=== PATIENT | female | born 1975 | race African-American/Black ===

== ENCOUNTER 2019-07-27 12:55 | Emergency (ER) | payer MEDICAID ==
[~2019-07-27] VITALS: Ht 162.6 cm; Wt 100.9 kg
[2019-07-27 13:25] VITALS: Ht 162.6 cm; Wt 100.9 kg
[2019-07-27] MEDS ORDERED: ELIQUIS5 MG PO (13:26)
[2019-07-27] MEDS ORDERED: METOPROLOL TART25 MG PO (13:27)
[2019-07-27] MEDS ORDERED: PRAVACHOL20 MG PO (13:27)
[2019-07-27] MEDS ORDERED: XANAX1 MG PO (13:27)
[2019-07-27] MEDS ORDERED: ALBUTEROL1.25 MG/3 INH (13:28)
[2019-07-27] MEDS ORDERED: PROAIR HFA8.5 G1 INH (13:29)
[2019-07-27] MEDS ORDERED: BREO ELLIPTA 11 EACH INH (13:29)
[2019-07-27] MEDS ORDERED: MELATONIN5 MG PO (13:30)
[2019-07-27 15:10] VITALS: BP 142/88
== END 2019-07-27 15:13 | disposition home or self-care (01) ==
LOC: D.ER 12:55
DX: M79.10 Myalgia, unspecified site (principal); I10 Essential (primary) hypertension; Z72.0 Tobacco use; M54.2 Cervicalgia; M25.512 Pain in left shoulder; W22.8XXA Striking against or struck by other objects, initial encounter

== ENCOUNTER 2019-11-24 19:32 | Emergency (ER) | payer MEDICAID ==
[~2019-11-24] VITALS: Ht 162.6 cm; Wt 96.2 kg
[~2019-11-24 19:32] MED LIST: ALBUTEROL1.25 MG/3 INH; BREO ELLIPTA 11 EACH INH; ELIQUIS5 MG PO; MELATONIN5 MG PO; METOPROLOL TART25 MG PO; PRAVACHOL20 MG PO; PROAIR HFA8.5 G1 INH; XANAX1 MG PO
[2019-11-24 20:20] VITALS: Ht 162.6 cm; Wt 96.2 kg
[2019-11-24 21:04] LABS: BASOPHILS 0.2 % (0-2); HEMATOCRIT 31.3 % (36.0-48.0); HEMOGLOBIN 10.1 g/dL (12-16); IMMATURE GRANULOCYTES 0.2 % (0-5); LYMPHOCYTES 27.3 % (15-50); MCH 28.5 pg (26.0-34.0); MCHC 32.3 g/dL (31.0-37.0); MCV 88.2 fL (80.0-100.0); MEAN PLATELET VOLUME 9.7 fL (7.4-10.4); MONOCYTES 7.6 % (2-11); NEUTROPHILS 63.7 % (40-80); PLATELET COUNT 310 10x3/uL (130-400); RBC 3.55 10x6/uL (4.00-5.40)
[2019-11-24 21:09] LABS: CALC OSMOLALITY 273 mosm/kg (275-300); CALCIUM 8.9 mg/dL (8.5-10.1); CARBON DIOXIDE 28.7 mmol/L (21.0-32.0); CHLORIDE - SERUM 103 mmol/L (98-107); GLUCOSE 89 mg/dL (74-106); POTASSIUM - SERUM 3.6 mmol/L (3.5-5.1); SODIUM 139 mmol/L (136-145); UREA NITROGEN 5 mg/dL (7-18); eGFR NON AFRICAN AMERICAN 64 mL/min (90-120)
[2019-11-24 21:12] LABS: APTT 22.5 SECONDS (22.8-39.4); INR 1.16 (0.85-1.17); PROTIME 14.7 SECONDS (11.6-15.0)
[2019-11-24 21:14] LABS: D-DIMER-QUANTITATIVE 0.27 ug/mLFEU (0.20-0.54)
[2019-11-24 21:26] LABS: ALBUMIN 3.2 g/dL (3.4-5.0); ALKALINE PHOSPHATASE 168 U/L (30-120); ALT (SGPT) 17 U/L (10-68); BILIRUBIN - TOTAL 0.19 mg/dL (0.2-1.3); CKMB 0.4 U/L (0.0-3.6); CREATINE KINASE 93 UL (21-215); PRO BNP 76 pg/mL (0-125); PROTEIN - SERUM 7.8 g/dL (6.4-8.2); TROPONIN-I < 0.017 ng/mL (0.000-0.060)
[2019-11-24] MEDS ORDERED: PREDNISONE10 MG PO (22:38)
[2019-11-25 00:59] VITALS: BP 145/92
== END 2019-11-25 00:06 | disposition home or self-care (01) ==
LOC: D.ER 19:32
PROVIDERS: Family Medicine
DX: D86.9 Sarcoidosis, unspecified (principal); I10 Essential (primary) hypertension; M54.9 Dorsalgia, unspecified

== ENCOUNTER 2019-11-27 12:38 | Inpatient (IN) | payer MEDICAID ==
[~2019-11-27] VITALS: Ht 162.6 cm; Wt 94.2 kg
[~2019-11-27 12:38] MED LIST changes: +PREDNISONE10 MG PO
[2019-11-27 13:31] LABS: BASOPHILS 0.2 % (0-2); EOSINOPHILS 1.7 % (0-7); HEMATOCRIT 32.5 % (36.0-48.0); HEMOGLOBIN 10.4 g/dL (12-16); MCH 28.3 pg (26.0-34.0); MCV 88.3 fL (80.0-100.0); MEAN PLATELET VOLUME 9.6 fL (7.4-10.4); MONOCYTES 7.7 % (2-11); NEUTROPHILS 57.4 % (40-80); PLATELET COUNT 303 10x3/uL (130-400); RBC 3.68 10x6/uL (4.00-5.40); RDW 15.9 % (11.5-14.5); WBC 5.2 10x3/uL (4.8-10.8)
[2019-11-27 13:38] LABS: CALC OSMOLALITY 269 mosm/kg (275-300); CALCIUM 8.9 mg/dL (8.5-10.1); CARBON DIOXIDE 27.6 mmol/L (21.0-32.0); CHLORIDE - SERUM 104 mmol/L (98-107); CREATININE - SERUM 0.9 mg/dL (0.6-1.3); GLUCOSE 89 mg/dL (74-106); POTASSIUM - SERUM 3.6 mmol/L (3.5-5.1); SODIUM 137 mmol/L (136-145); UREA NITROGEN 5 mg/dL (7-18); eGFR NON AFRICAN AMERICAN 72 mL/min (90-120)
[2019-11-27 13:40] LABS: APTT 30.9 SECONDS (22.8-39.4); INR 0.97 (0.85-1.17); PROTIME 12.9 SECONDS (11.6-15.0)
[2019-11-27 14:02] LABS: ALBUMIN 3.1 g/dL (3.4-5.0); ALKALINE PHOSPHATASE 158 U/L (30-120); ALT (SGPT) 13 U/L (10-68); BILIRUBIN - TOTAL 0.08 mg/dL (0.2-1.3); CKMB 0.4 U/L (0.0-3.6); CREATINE KINASE 72 UL (21-215); PRO BNP 145 pg/mL (0-125); PROTEIN - SERUM 7.9 g/dL (6.4-8.2); TROPONIN-I < 0.017 ng/mL (0.000-0.060)
[2019-11-27 16:00] VITALS: BP 130/85
[2019-11-27 17:00] VITALS: BP 142/73
[2019-11-27 18:00] VITALS: BP 136/85
[2019-11-27 19:00] VITALS: BP 149/85
[2019-11-27 22:48] LABS: TROPONIN-I < 0.017 ng/mL (0.000-0.060)
[2019-11-27 23:59] VITALS: BP 135/74
--- NOTE | 2019-11-28 00:49 | NUR ---
recieved pt to room per stretcher.pt is alert and oriented. pt c/o pain to breast and rib area.rates pain as a 6 on pain scale.pt has sob with miniminal exertion.pt has had some nausea and vomiting.pt has INT to left ac with some tenderness.pt has a sling to right arm.no distress noted.will continue to monitor. call johnson with in reach.siderails up x2.
[2019-11-28 03:19] VITALS: BP 116/68
--- NOTE | 2019-11-28 04:00 | NUR ---
PT LAYING IN BED ALERT.PT CONTINUES TO C/O PAIN TO BREAST AREA.PT STATES PAIN WORSENS WITH COUGHING.CALLBELL IN REACH.SIDERAILS UP X2.
[2019-11-28 05:15] LABS: BASOPHILS 0 % (0-2); EOSINOPHILS 0 % (0-7); HEMATOCRIT 32.6 % (36.0-48.0); HEMOGLOBIN 10.3 g/dL (12-16); IMMATURE GRANULOCYTES 0.2 % (0-5); LYMPHOCYTES 12.1 % (15-50); MCH 27.9 pg (26.0-34.0); MCHC 31.6 g/dL (31.0-37.0); MCV 88.3 fL (80.0-100.0); MEAN PLATELET VOLUME 10.2 fL (7.4-10.4); MONOCYTES 4.1 % (2-11); NEUTROPHILS 83.6 % (40-80); RBC 3.69 10x6/uL (4.00-5.40); RDW 16.1 % (11.5-14.5)
[2019-11-28 05:21] LABS: PLATELET COUNT 390 10x3/uL (130-400); WBC 9.2 10x3/uL (4.8-10.8)
[2019-11-28 05:42] LABS: ALBUMIN 2.9 g/dL (3.4-5.0); ALKALINE PHOSPHATASE 152 U/L (30-120); ALT (SGPT) 16 U/L (10-68); BILIRUBIN - TOTAL 0.17 mg/dL (0.2-1.3); CALCIUM 8.6 mg/dL (8.5-10.1); CARBON DIOXIDE 25.3 mmol/L (21.0-32.0); CHLORIDE - SERUM 102 mmol/L (98-107); MAGNESIUM - SERUM 1.9 mg/dL (1.8-2.4); PROTEIN - SERUM 7.7 g/dL (6.4-8.2); SODIUM 134 mmol/L (136-145); eGFR NON AFRICAN AMERICAN 64 mL/min (90-120)
[2019-11-28 05:43] LABS: CALC OSMOLALITY 268 mosm/kg (275-300); GLUCOSE 157 mg/dL (74-106); TROPONIN-I < 0.017 ng/mL (0.000-0.060); UREA NITROGEN 8 mg/dL (7-18)
[2019-11-28 06:59] VITALS: BP 98/70
[2019-11-28 07:00] VITALS: BP 118/63
[2019-11-28 10:30] VITALS: BP 119/62
--- NOTE | 2019-11-28 10:37 | NUR ---
CONTACTED JENNIFER CALDERON SAFETY CONSULTANT AND LEFT MESSAGE THAT THE MORPHINE IS NOT HELPING THIS PT'S PAIN, TO PLEASE CALL BACK.
--- NOTE | 2019-11-28 10:42 | NUR ---
0802-LYING IN BED AWAKE, ALERT, ORIENTED, C/O PAIN TO LEFT BREAST THAT GOES INTO BACK LEFT LUNG RATED 10 ON SCALE--MORPHINE AND PHENERGAN ADMINISTERED/ORDER. ALL OTHER AM MEDS ADMINISTERED/ORDER. WILL MONITOR. 1044--JENNIFER AT [facility]--VERBALLY EXPLAINED THAT MORPHINE NOT HELPING PT'S PAIN--JENNIFER STATES THE PT WILL MOST LIKELY BE GOING HOME TODAY.
[2019-11-28 12:09] VITALS: Ht 162.6 cm; Wt 94.2 kg
[2019-11-28 15:00] VITALS: BP 119/75
[2019-11-28 20:00] VITALS: BP 102/54
--- NOTE | 2019-11-28 20:00 | NUR ---
pt laying in bed crying pt states she has hurt all day. that morphine is not helping the pain.pt want more pain med.instruct pt that pain med will be given soon.pt with a good appetite.resp are even et unlabored.heartrate is regular.will continue to monitor. callbell within reach.siderails up x2.
--- NOTE | 2019-11-28 20:15 | NUR ---
PT GIVEN PM MEDS.PT GIVEN MORPHINE REQUESTED.PT RATES PAIN A 10 ON PAIN SCALE.WILL CONTINUE TO MONITOR.
[2019-11-29] VITALS: BP 95/55
--- NOTE | 2019-11-29 01:06 | NUR ---
PT REQUEST PAIN MED.PT GIVEN MORPHINE 4 MG IVP.WILL CONTINUE TO MONITOR.
--- NOTE | 2019-11-29 02:39 | NUR ---
PT REQUESTED PAIN MED AND PHENEGRAN. INSTRUCT PT THAT PAIN MED NOT DUE AT THIS TIME.PT GIVEN PHENEGRAN IM.WILL CONTINUE TO MONITOR.
[2019-11-29 04:00] VITALS: BP 99/63
[2019-11-29 06:04] LABS: BASOPHILS 0.1 % (0-2); EOSINOPHILS 0.2 % (0-7); HEMATOCRIT 29.9 % (36.0-48.0); HEMOGLOBIN 9.4 g/dL (12-16); IMMATURE GRANULOCYTES 0.2 % (0-5); LYMPHOCYTES 21.6 % (15-50); MCH 28.1 pg (26.0-34.0); MCHC 31.4 g/dL (31.0-37.0); MCV 89.5 fL (80.0-100.0); MEAN PLATELET VOLUME 10.1 fL (7.4-10.4); MONOCYTES 9.8 % (2-11); NEUTROPHILS 68.1 % (40-80); PLATELET COUNT 369 10x3/uL (130-400); RBC 3.34 10x6/uL (4.00-5.40); RDW 16.5 % (11.5-14.5)
[2019-11-29 06:05] LABS: WBC 12.1 10x3/uL (4.8-10.8)
[2019-11-29 06:40] LABS: ALBUMIN 2.9 g/dL (3.4-5.0); ANION GAP 11.3 mmol/L (8-16); CALCIUM 8.3 mg/dL (8.5-10.1); CARBON DIOXIDE 27.5 mmol/L (21.0-32.0); CREATININE - SERUM 1.1 mg/dL (0.6-1.3); MAGNESIUM - SERUM 2.1 mg/dL (1.8-2.4); POTASSIUM - SERUM 3.8 mmol/L (3.5-5.1); PROTEIN - SERUM 7.2 g/dL (6.4-8.2)
[2019-11-29 06:41] LABS: BILIRUBIN - TOTAL 0.08 mg/dL (0.2-1.3)
[2019-11-29 07:42] VITALS: BP 101/59
--- NOTE | 2019-11-29 08:00 | NUR ---
0700 BEDSIDE SHIFT REPORT RECEIVED ASSESSMENT COMPLETE DISCUSSEDF PAIN MEDS WITH PATIENT POSSIBLE DISCHARGE TODAY
[2019-11-29] MEDS ORDERED: PREDNISONE10 MG PO (08:11)
--- NOTE | 2019-11-29 08:59 | MORECARE ---
CASE MANAGEMENT DISCHARGE SUMMARY PATIENT: MONISHA PALOMARES UNIT: [id number] ADM DATE: 11/27/19 AGE: 43 : 75 SEX: F ROOM/BED: D.4080 AUTHOR: LIZZY GREEN PHYSICIAN: REFERRING PHYSICIAN: NEHAL CALDERON MD DATE OF SERVICE: 11/29/19 Discharge Plan Patient Name: MONISHA PALOMARES Facility: [facility]:[place] : 1975 Planned Disposition: Home Anticipated Discharge Date: 11/29/19 Discharge Date: Expected LOS: 2 Initial Reviewer: [email or web address] Initial Review Date: 11/29/2019 Generated: 11/29/19 9:58 am Patient Name: MONISHA PALOMARES Page [id number] at 0859 All edits/amendments must be made on the electronic document DICTATION DATE: 11/29/1959 PHARMACY CLINICAL COORDINATOR: DEMETRI 11/29/1959 RPT#: [id number] DC DATE: STATUS: ADM IN [facility] [address] [place] [address] END OF REPORT
--- NOTE | 2019-11-29 09:27 | MORECARE ---
CASE MANAGEMENT DISCHARGE SUMMARY PATIENT: MONISHA PALOMARES UNIT: [id number] ADM DATE: 11/27/19 AGE: 43 : 75 SEX: F ROOM/BED: D.2101 AUTHOR: LIZZY GREEN PHYSICIAN: REFERRING PHYSICIAN: NEHAL CALDERON MD DATE OF SERVICE: 11/29/19 Discharge Plan Patient Name: MONISHA PALOMARES Facility: [facility]:[place] : 1975 Planned Disposition: Home Anticipated Discharge Date: 11/29/19 Discharge Date: Expected LOS: 2 Initial Reviewer: [email or web address] Initial Review Date: 11/29/2019 Generated: 11/29/19 10:26 am DCPIA - Discharge Planning Initial Assessment Updated by [email or web address]: Imelda Toscano on 11/29/19 9:15 am * Is the patient Alert and Oriented? Yes * How many steps to enter\exit or inside your home? 7/0 * PCP [facility] in [place] * Pharmacy [facility] in [place] * Preadmission Environment Home with Family * ADLs Partial Dependent * Partial ADLs (Assistance needed) Ambulation * Equipment CPAP Nebulizer Walker * List name and contact numbers for known caregivers / representatives who currently or will assist patient after discharge: Keysha Roth - sister - [phone] Aniya Shepherd - mother - [phone] * Verbal permission to speak to the caregivers and representatives has been obtained from the patient. Yes * Community resources currently utilized None * Additional services required to return to the preadmission environment? Yes * Can the patient safely return to the preadmission environment? Yes * Has this patient been hospitalized within the prior 30 days at any hospital? No Last DP export: 11/29/19 7:59 a Patient Name: MONISHA PALOMARES Page [id number] at 0927 All edits/amendments must be made on the electronic document DICTATION DATE: 11/29/19925 GEOSCIENCES PROFESSOR: DEMETRI 11/29/19925 RPT#: [id number] DC DATE: STATUS: ADM IN [facility] [address] [place] [address] END OF REPORT
--- NOTE | 2019-11-29 10:28 | MORECARE ---
CASE MANAGEMENT DISCHARGE SUMMARY PATIENT: MONISHA PALOMARES UNIT: [id number] ADM DATE: 11/27/19 AGE: 43 : 75 SEX: F ROOM/BED: D.9812 AUTHOR: PETER,DOC PHYSICIAN: REFERRING PHYSICIAN: NEHAL CALDERON MD DATE OF SERVICE: 11/29/19 Discharge Plan Patient Name: MONISHA PALOMARES Facility: [facility]:[place] : 1975 Planned Disposition: Home Anticipated Discharge Date: 11/29/19 Discharge Date: Expected LOS: 2 Initial Reviewer: [email or web address] Initial Review Date: 11/29/2019 Generated: 11/29/19 11:27 am Comments DCP- Discharge Planning Updated by [email or web address]: Imelda Toscano on 11/29/19 9:[address] Patient Name: MONISHA PALOMARES Admission Status: ER Accout number: [id number] Admission Date: 11-27-2019 : 1975 Admission Diagnosis:SHORTNESS OF BREATH Attending: LAURA Current LOS: 2 Anticipated DC Date: 11-29-2019 Planned Disposition: Home Primary Insurance: MEDICAID [place] Discharge Planning Comments: CM met with patient to complete initial dc planning assessment. CM educated patient on the CM role and verbal consent given by patient to complete assessment. CM verified patient's address, phone number, and emergency contact phone numbers. Patient lives at home with her mother. At discharge patient plans to return and feels this is a safe discharge. CM discussed availability of home health, rehab services, and medical equipment. Patient states she is unable to afford her prednisone. Her Rx cost is 3.99 at [facility]. She states she does not have any money and her mother or sister does not have any money to loan her for the medication. I called in her Rx to [facility] pharmacy and spoke with pharmacist (Hodan). Prednisone 30 tablets will be 17.29 at [facility] and approved by Jenny Carr. I have informed the patient verbally and written instruction on picking up her medication at [facility] with case management paying the bill. Transportation provider at discharge will be her family, states she is calling someone to pick her up. CM will continue to follow and will assist as needed with dc plans/needs. Powder Blender: Imelda Dorcas DCPIA - Discharge Planning Initial Assessment Updated by [email or web address]: Imelda Dorcas on 11/29/19 9:15 am * Is the patient Alert and Oriented? Yes * How many steps to enter\exit or inside your home? 7/0 * PCP [facility] in [place] * Pharmacy [facility] in [place] * Preadmission Environment Home with Family * ADLs Partial Dependent * Partial ADLs (Assistance needed) Ambulation * Equipment CPAP Nebulizer Walker * List name and contact numbers for known caregivers / representatives who currently or will assist patient after discharge: Keysha Roth - sister - [phone] Aniya Shepherd - mother - [phone] * Verbal permission to speak to the caregivers and representatives has been obtained from the patient. Yes * Community resources currently utilized None * Additional services required to return to the preadmission environment? Yes * Can the patient safely return to the preadmission environment? Yes * Has this patient been hospitalized within the prior 30 days at any hospital? No Last DP export: 11/29/19 8:27 a Patient Name: MONISHA PALOMARES Page 00206 at 1028 All edits/amendments must be made on the electronic document DICTATION DATE: 11/29/19 1027 AUTOMATIC VULCANIZING OPERATOR: DEMETRI 11/29/19 1027 RPT#: [id number] DC DATE: STATUS: ADM IN [facility] [address] [place] [address] END OF REPORT
--- NOTE | 2019-11-29 11:13 | NUR ---
UPON DISCHARGE PATIENT IS ASKED IF WANTING FLU SHOT, STATES "YES". PATIENT STATES [facility] WILL NOT BE HERE TILL ABOUT 430-5 PM THEY ARE COMING FROM [place].
--- NOTE | 2019-11-29 16:09 | NUR ---
0845 C/O PAIN MORPHINE 4MG GIVEN IV
--- NOTE | 2019-11-29 16:11 | NUR ---
1256 MORPHINE 4MG IV GIVEN FOR PAIN
--- NOTE | 2019-11-29 16:12 | NUR ---
1600 WRITTEN AND VERBAL DISCHARGE INSTRUCTIONS GIVEN VERBALIZED UNDERSTANDING HER [facility] IS COMING FROM [place] EXPECTED TO BE HERE 1730
--- NOTE | 2019-11-30 14:05 | MORECARE ---
CASE MANAGEMENT DISCHARGE SUMMARY PATIENT: MONISHA PALOMARES UNIT: [id number] ADM DATE: 11/27/19 AGE: 43 : 75 SEX: F ROOM/BED: D.8136 AUTHOR: PETER,DOC PHYSICIAN: REFERRING PHYSICIAN: NEHAL CALDERON MD DATE OF SERVICE: 11/30/19 Discharge Plan Patient Name: MONISHA PALOMARES Facility: [facility]:[place] : 1975 Planned Disposition: Home Anticipated Discharge Date: 11/29/19 Discharge Date: 11/29/2019 Expected LOS: 2 Initial Reviewer: [email or web address] Initial Review Date: 11/29/2019 Generated: 11/30/19 3:05 pm Comments DCP- Discharge Planning Updated by [email or web address]: Imelda Toscano on 11/29/19 9:[address] Patient Name: MONISHA PALOMARES Admission Status: ER Accout number: [id number] Admission Date: 11-27-2019 : 1975 Admission Diagnosis:SHORTNESS OF BREATH Attending: ALURA Current LOS: 2 Anticipated DC Date: 11-29-2019 Planned Disposition: Home Primary Insurance: MEDICAID [place] Discharge Planning Comments: CM met with patient to complete initial dc planning assessment. CM educated patient on the CM role and verbal consent given by patient to complete assessment. CM verified patient's address, phone number, and emergency contact phone numbers. Patient lives at home with her mother. At discharge patient plans to return and feels this is a safe discharge. CM discussed availability of home health, rehab services, and medical equipment. Patient states she is unable to afford her prednisone. Her Rx cost is 3.99 at [facility]. She states she does not have any money and her mother or sister does not have any money to loan her for the medication. I called in her Rx to [facility] pharmacy and spoke with pharmacist (Hodan). Prednisone 30 tablets will be 17.29 at [facility] and approved by Jenny Carr. I have informed the patient verbally and written instruction on picking up her medication at [facility] with case management paying the bill. Transportation provider at discharge will be her family, states she is calling someone to pick her up. CM will continue to follow and will assist as needed with dc plans/needs. Family Resource Management Professor: Imelda Dorcas DCPIA - Discharge Planning Initial Assessment Updated by [email or web address]: Imelda Dorcas on 11/29/19 9:15 am * Is the patient Alert and Oriented? Yes * How many steps to enter\exit or inside your home? 7/0 * PCP [facility] in [place] * Pharmacy [facility] in [place] * Preadmission Environment Home with Family * ADLs Partial Dependent * Partial ADLs (Assistance needed) Ambulation * Equipment CPAP Nebulizer Walker * List name and contact numbers for known caregivers / representatives who currently or will assist patient after discharge: Keysha Roth - sister - [phone] Aniya Shepherd - mother - [phone] * Verbal permission to speak to the caregivers and representatives has been obtained from the patient. Yes * Community resources currently utilized None * Additional services required to return to the preadmission environment? Yes * Can the patient safely return to the preadmission environment? Yes * Has this patient been hospitalized within the prior 30 days at any hospital? No Last DP export: 11/29/19 9:28 a Patient Name: MONISHA PALOMARES Page [phone] at 1405 All edits/amendments must be made on the electronic document DICTATION DATE: 11/30/19 1405 ORTHOPEDIC SHOE FITTER: DEMETRI 11/30/19 140 RPT#: [id number] DC DATE:11/29/19 STATUS: DIS IN [facility] [address] [place] [address] END OF REPORT
== END 2019-11-29 17:45 | disposition home or self-care (01) | DRG 197 ==
LOC: D.ER 12:38 → D.M2 18:25
PROVIDERS: Emergency Medicine; ADMIT Family Medicine; ATTEND Family Medicine
DX: D86.0 Sarcoidosis of lung (principal); B40.9 Blastomycosis, unspecified; D64.9 Anemia, unspecified; I10 Essential (primary) hypertension; E78.5 Hyperlipidemia, unspecified; G89.29 Other chronic pain; M54.9 Dorsalgia, unspecified; F41.8 Other specified anxiety disorders; Z79.01 Long term (current) use of anticoagulants; Z86.711 Personal history of pulmonary embolism